=== PATIENT | female | born 1965 | race Caucasian/White ===

== ENCOUNTER 2017-08-08 05:02 | Day surgery (SDC) | payer OTHER ==
[2017-07-31 07:37] VITALS: BMI 33.3
[2017-08-08] MEDS ORDERED: ROPIVACAINE HCL 0.5% 30ML VIAL ONE (08:47)
[2017-08-08] MEDS ORDERED: MIDAZOLAM HCL 2 MG/2 ML SINGLE DOSE VIAL ONE ×2 (08:49)
--- NOTE | 2017-08-08 09:15 | HP ---
[facility]ellite [facility] - Chief Complaint Chief Complaint: left shoulder pain, decreased ROM History of Present Illness: left shoulder impingement syndrome, adhesive capsulitis History Source: Patient Limitations to Obtaining History: No Limitations - Past Medical History Allergies/Adverse Reactions: Allergies Allergy/AdvReac Type Severity Reaction Status Date / Time No Known Allergies Allergy Verified 08/08/17 08:11 ...LMP: 08/25/13 ...LMP Comment: POSTMENOPAUSAL - Current Medications Current Medications: Home Medications Medication Instructions Recorded Levothyroxine [Synthroid -] 100 mcg PO UTDICT 09/08/13 Levothyroxine [Synthroid -] 112 mcg PO ASDIR 07/31/17 Satellite Physical Exam - Physical Examination Vital Signs: Vital Signs Period Temp Pulse Resp BP Sys/Son Pulse Ox Last 24 Hr 98.4 F 79 18 104/65 98 General Appearance: Well Nourished ENT: Clear Lung: Clear to auscultation Heart: Regular rate & rhythm Breasts: Soft, Skin Changes Abdomen: Soft Extremities: No edema Satellite Impression/Plan - Impression/Plan Impression: left shoulder impingement syndrome, adhesive capsulitis Operative Procedure: left shoulder arthroscopy, decompression, manipulation under anesthesia Date to be Performed: 08/08/17
[2017-08-08] MEDS ORDERED: PROPOFOL 20 ML ONE (09:24)
[2017-08-08] MEDS ORDERED: ceFAZolin SODIUM 1 GM VIAL ONE (09:24)
[2017-08-08] MEDS ORDERED: LIDOCAINE HCL/PF 2% SDV 5ML VIAL ONE (09:24)
[2017-08-08] MEDS ORDERED: ROCURONIUM BROMIDE 50 MG/5 ML VIAL ONE (09:25)
[2017-08-08] MEDS ORDERED: ceFAZolin SODIUM 1 GM VIAL IVPB ONE (09:55)
[2017-08-08] MEDS ORDERED: NEOSTIGMINE METHYLSULFATE 0.5 MG/ML - 10 ML MDV ONE (10:53)
[2017-08-08] MEDS ORDERED: GLYCOPYRROLATE 0.2 MG/1 ML VIAL ONE (10:53)
--- NOTE | 2017-08-08 11:10 | OP ---
Operative Note - Note: Operative Date: 08/08/17 Pre-Operative Diagnosis: left shoulder impingement syndrome and adhesive capsulitis/frozen shoulder Operation: left shoulder arthroscopy, decompression, manipulation under anesthesia Post-Operative Diagnosis: Same as Pre-op Surgeon: Cm Palmer Anesthesiologist/ENGINE REPAIRER PRODUCTION: Yoon Calvin Anesthesia: General Specimens Removed: shavings Estimated Blood Loss (mls): 75 Drains, Volume Out (mls): 0 Blood Volume Replaced (mls): 0 Fluid Volume Replaced (mls): 700 Operative Report Dictated: Yes
[2017-08-08] MEDS ORDERED: IBUPROFEN 800 MG/8 ML IJ IVPB PRN (11:17)
[2017-08-08] MEDS ORDERED: oxyCODONE HCL 5 MG TABLET PO PRN (11:17)
[2017-08-08] MEDS ORDERED: ONDANSETRON 4 MG/2 ML VIAL IVPUSH PRN (11:17)
[2017-08-08] MEDS ORDERED: LACTATED RINGERS SOLUTION 1,000 ML IV SCH (11:30)
[2017-08-08 12:07] VITALS: TEMP 97.7
--- NOTE | 2017-08-08 12:55 | OP ---
DATE OF OPERATION: 08/08/2017 PREOPERATIVE DIAGNOSIS: Left shoulder impingement syndrome and adhesive capsulitis. POSTOPERATIVE DIAGNOSIS: Left shoulder impingement syndrome and adhesive capsulitis. PROCEDURE: Left shoulder arthroscopy, subacromial decompression, and manipulation under anesthesia. SURGEON: Cm Morales MD LAP LAYER: ANESTHESIOLOGIST: Yoon Calvin MD ANESTHESIA: General endotracheal anesthesia. DRAINS: None. COMPLICATIONS: None. SPECIMENS: None. BLOOD LOSS: 75 mL. BLOOD GIVEN: None. FLUID REPLACEMENT: 1000 mL. DESCRIPTION OF PROCEDURE: The patient is a 52-year-old female with a preoperative diagnosis of a left shoulder adhesive capsulitis/frozen shoulder and subacromial impingement. After understanding the potential risks, complications, alternatives, benefits of surgery versus nonsurgical treatment, the patient elected to undergo this procedure. Patient was brought to the operating room, peripheral IV placed, and IV sedation was given. One gram of IV Ancef was given. General endotracheal anesthesia was induced. She was placed into the beach-chair position with ample padding throughout. I did a manipulation under anesthesia. The patient was extremely stiff. Her passive motion stopped at 80 degrees of forward flexion and abduction. I was unable to stretch her further, getting her to full extension and abduction, but felt the release of several areas of scar tissue. I also did internal and external rotation, as well as reduction. The left upper extremity was prepped and draped in the usual sterile fashion. The bony landmarks were marked out with a marking pen. A posterior portal was established. A diagnostic glenohumeral arthroscopy was performed. The only finding on the glenohumeral side was that the patient had a partial undersurface tear of the rotator cuff, very small, comprising less than 5% of the thickness. There was no arthritis. The labrum and the biceps tendon looked good. Next, our attention was turned to the subacromial space. A lateral portal was established with a spinal needle. A No. 15 scalpel blade and a green cannula introduced in the subacromial space. Patient had a tremendous amount of inflammatory bursitis. An extensive debridement/soft tissue bursectomy was performed with the ArthroCare Wand, revealing a very large subacromial bony type 2 spur. This was taken down tieh a 5.5-mm oval bur fine tune and reverse, the shaver was used to remove all soft tissue and debris. I looked at the AC joint and the distal clavicle; those looked fine. I was able to visualize the top surface of the rotator cuff and moved the arm through a full range of motion; it looked fine, there was no tear. Photographs were taken. All debris and excess saline removed. The arthroscopy portals were closed with 3-0 nylon sutures. The area was then washed and dried, covered with Aquacel dressing. Total operative time was about 45 minutes. There were no complications during the case. The patient was put into an arm sling, extubated, and brought to the ambulatory recovery room in stable condition. CM MORALES M.D. [id number]
[2017-08-08 17:55] VITALS: BP 105/70; PULSE 88
== END 2017-08-08 16:00 | disposition home or self-care (01) ==
LOC: JASU-SURG 05:02
PROVIDERS: ATTEND Orthopaedic Surgery
PROC: 0RBK4ZZ Excision of Left Shoulder Joint, Percutaneous Endoscopic Approach (ICD-10-PCS; principal; 2017-08-08 09:00)
PROC: [UNRECOGNIZED PROCEDURE] (2017-08-08 09:00)
DX: M75.02 Adhesive capsulitis of left shoulder (principal); M75.42 Impingement syndrome of left shoulder

== ENCOUNTER 2018-11-11 15:33 | Emergency (ER) | payer OTHER | END 2018-11-11 17:57 | disposition home or self-care (01) | LOC: JER 15:33 ==

== ENCOUNTER 2018-12-16 08:40 | Day surgery (SDC) | payer OTHER ==
[2018-12-16 09:17] VITALS: BMI 32.5
[2018-12-16 10:37] VITALS: TEMP 98.1
[2018-12-16 11:37] VITALS: BP 101/66; PULSE 72
== END 2018-12-16 11:30 | disposition home or self-care (01) ==
LOC: JASU-ENDO 08:40
PROVIDERS: ATTEND Internal Medicine Gastroenterology
PROC: 0DJD8ZZ Inspection of Lower Intestinal Tract, Via Natural or Artificial Opening Endoscopic (ICD-10-PCS; principal; 2018-12-16 09:30)
DX: Z12.11 Encounter for screening for malignant neoplasm of colon (principal); Z86.010 Personal history of colon polyps; K57.30 Diverticulosis of large intestine without perforation or abscess without bleeding; K64.8 Other hemorrhoids

== ENCOUNTER 2022-02-19 23:44 | Emergency (ER) | payer OTHER ==
[2022-02-20] MEDS ORDERED: FAMOTIDINE 20 MG TABLET PO ONE (00:03)
[2022-02-20] MEDS ORDERED: DEXAMETHASONE LIQUID 0.5 MG/5 ML PO ONE (00:03)
[2022-02-20] MEDS ORDERED: diphenhydrAMINE HCL 25 MG CAPSULE (FP) PO ONE ×2 (00:03→00:17)
[2022-02-20 00:16] VITALS: BP 123/77; PULSE 96; RESP 17; TEMP 99.8; BMI 31.9
[2022-02-20] MEDS ORDERED: FAMOTIDINE 20 MG TABLET ONE (00:18)
[2022-02-20] MEDS ORDERED: DEXAMETHASONE SOD PHOSPHATE 10 MG/1 ML VIAL ONE (00:18)
== END 2022-02-20 00:41 | disposition home or self-care (01) ==
LOC: FER 23:44
DX: T78.49XA Other allergy, initial encounter (principal); L23.2 Allergic contact dermatitis due to cosmetics
CPT/HCPCS: 99283-25

== ENCOUNTER 2023-11-15 11:54 | Observation (INO) | payer OTHER ==
[2023-11-15] MEDS: SODIUM CHLORIDE 0.9% 500 ML INFUS.BAG IV ONE (12:45)
[2023-11-15] MEDS: MECLIZINE HCL 25 MG TABLET (FP) PO ONE (12:50)
[2023-11-15 13:11] LABS: INR 0.99 (0.83-1.09); PROTHROMBIN TIME (PATIENT) 11.3 SEC (9.7-13.0)
[2023-11-15 13:14] LABS: ACTIVATED PTT 30.9 SECONDS (25.2-36.5)
[2023-11-15 13:19] LABS: HEMATOCRIT 39.4 % (32.4-45.2); HEMOGLOBIN 13.3 G/dL (10.7-15.3); MCH 30.8 pg (25.7-33.7); MCHC 33.7 g/dl (32.0-36.0); MEAN CELL VOLUME 91.5 fl (80-96); MEAN PLT VOLUME 9.4 fl (7.5-11.1); PLATELET COUNT 178.4 10^3/uL (134-434); RBC 4.31 10^6/uL (3.60-5.2); RDW 13.5 % (11.6-15.6); WHITE BLOOD COUNT 5.3 10^3/uL (4.0-10.8)
[2023-11-15 13:20] LABS: ALBUMIN 4.5 g/dl (3.4-5.0); ALK PHOS 67 U/L (45-117); ANION GAP 10 mmol/L (4-13); BILIRUBIN,TOTAL 0.5 mg/dl (0.2-1); CHLORIDE 103 mmol/L (98-107); CO2 26 mmol/L (21-32); CREATININE 0.8 mg/dl (0.6-1.3); GLUCOSE,RANDOM 120 mg/dl (74-106); POTASSIUM 3.9 mmol/L (3.5-5.1); SGOT/AST 13 U/L (15-37); SGPT/ALT 11 U/L (7-52); SODIUM 139 mmol/L (136-145); TOT PROT 6.9 g/dl (6.4-8.2)
[2023-11-15] MEDS: ACETAMINOPHEN 1000 MG/100 ML BAG IVPB ONE (13:20)
[2023-11-15 13:24] LABS: PLATELET ESTIMATE ADEQUATE
[2023-11-15] MEDS: diazePAM CARPU-JECT 10 MG/2 ML DISP.SYRIN IVPUSH ONE (13:40)
[2023-11-15] MEDS ORDERED: METOCLOPRAMIDE HCL INJECTION 10 MG/2 ML VIAL ONE (13:44)
[2023-11-15] MEDS ORDERED: diazePAM CARPU-JECT 10 MG/2 ML DISP.SYRIN ONE (13:45)
[2023-11-15] MEDS ORDERED: MECLIZINE HCL 25 MG TABLET (FP) ONE (13:45)
[2023-11-15] MEDS ORDERED: ACETAMINOPHEN INJECTION 100 ML IVPB ONE (13:45)
[2023-11-15] MEDS: METOCLOPRAMIDE HCL INJECTION 10 MG/2 ML VIAL IVPB ONE (13:57)
[2023-11-15] MEDS ORDERED: DEXAMETHASONE SOD PHOSPHATE 10 MG/1 ML VIAL ONE (16:31)
[2023-11-15] MEDS: DEXAMETHASONE SOD PHOSPHATE 10 MG/1 ML VIAL IVPUSH ONE (16:34)
[2023-11-15] MEDS ORDERED: DOCUSATE SODIUM 100 MG CAPSULE (FP) PO PRN (21:01)
[2023-11-16 00:31] VITALS: BMI 33.0
[2023-11-16] MEDS ORDERED: MELATONIN 5 MG TABLETS PO PRN (00:45)
[2023-11-16] MEDS: SODIUM CHLORIDE 1,000 ML IV SCH (01:02)
[2023-11-16] MEDS: METOCLOPRAMIDE HCL INJECTION 10 MG/2 ML VIAL IVPUSH PRN (01:02)
[2023-11-16] MEDS: ACETAMINOPHEN 1000 MG/100 ML BAG IVPB PRN (06:34)
[2023-11-16] MEDS: MECLIZINE HCL 25 MG TABLET (FP) PO SCH ×2 (06:34→11:51)
[2023-11-16] MEDS: LEVOTHYROXINE NA 112 MCG TABLET (FP) PO SCH (06:34)
[2023-11-16 08:21] LABS: HEMATOCRIT 37.5 % (32.4-45.2); HEMOGLOBIN 12.5 G/dL (10.7-15.3); MCH 30.7 pg (25.7-33.7); MCHC 33.4 g/dl (32.0-36.0); PLATELET COUNT 182.2 10^3/uL (134-434); RBC 4.08 10^6/uL (3.60-5.2); RDW 13.8 % (11.6-15.6); WHITE BLOOD COUNT 5.9 10^3/uL (4.0-10.8)
[2023-11-16 08:41] LABS: ANION GAP 10 mmol/L (4-13); CALCIUM 9.5 mg/dl (8.5-10.1); CHLORIDE 107 mmol/L (98-107); CO2 25 mmol/L (21-32); CREATININE 0.8 mg/dl (0.6-1.3); GLUCOSE,RANDOM 117 mg/dl (74-106); MAGNESIUM 1.7 mg/dL (1.8-2.4); POTASSIUM 3.9 mmol/L (3.5-5.1); SODIUM 142 mmol/L (136-145)
[2023-11-16] MEDS: SODIUM CHLORIDE 0.9% 1000 ML INFUS.BAG IV ONE (09:28)
[2023-11-16] MEDS: MAGNESIUM OXIDE 400 MG TABLET (FP) PO ONE (09:29)
[2023-11-16] MEDS ORDERED: SODIUM CHLORIDE 0.9% 500 ML INFUS.BAG IV ONE (09:30)
[2023-11-16 14:26] VITALS: BP 134/66; PULSE 93; RESP 18; TEMP 98.6
[2023-11-16] MEDS ORDERED: ACETAMINOPHEN 325 MG TABLET (FP) PO PRN ×2 (21:01)
[2023-11-19] MEDS ORDERED: LEVOTHYROXINE NA 100 MCG TABLET (FP) PO SCH (07:00)
== END 2023-11-16 15:30 | disposition home or self-care (01) ==
LOC: FER 11:54 → FM/S 18:35
PROVIDERS: ATTEND Internal Medicine
PROC: 3E033NZ Introduction of Analgesics, Hypnotics, Sedatives into Peripheral Vein, Percutaneous Approach (ICD-10-PCS; principal; 2023-11-15)
PROC: 3E0337Z Introduction of Electrolytic and Water Balance Substance into Peripheral Vein, Percutaneous Approach (ICD-10-PCS; 2023-11-15)
PROC: 3E033GC Introduction of Other Therapeutic Substance into Peripheral Vein, Percutaneous Approach (ICD-10-PCS; 2023-11-15)
DX: R42 Dizziness and giddiness (principal); E03.9 Hypothyroidism, unspecified
CPT/HCPCS: 36415; 70450-TC; 70544-TC; 70547-TC; 70551-TC; 71045-TC-FY; 80048; 80053; 82306; 82746; 83036; 83735; 84439; 84443; 84484; 85027; 85610; 85730; 93005; 96374; 96375; 96376; 97116-GP; 97161-GP; 99285-25; G0378; J0131; J1100

== ENCOUNTER 2024-07-04 04:25 | Day surgery (SDC) | payer OTHER ==
[2024-07-02 12:46] VITALS: BMI 33.3
[2024-07-04 11:50] VITALS: TEMP 98.1
[2024-07-04 12:16] VITALS: RESP 16
[2024-07-04 12:23] VITALS: BP 105/61; PULSE 77
== END 2024-07-04 12:30 | disposition home or self-care (01) ==
LOC: JASU-ENDO 04:25
PROVIDERS: ATTEND Internal Medicine Gastroenterology
PROC: 0DBH8ZX Excision of Cecum, Via Natural or Artificial Opening Endoscopic, Diagnostic (ICD-10-PCS; principal; 2024-07-04 12:00)
DX: Z12.11 Encounter for screening for malignant neoplasm of colon (principal); D12.0 Benign neoplasm of cecum; K57.30 Diverticulosis of large intestine without perforation or abscess without bleeding; Z86.0100 Personal history of colon polyps, unspecified
CPT/HCPCS: 88305-TC